=== PATIENT | female | born 1995 | race Caucasian/White ===

== ENCOUNTER 2023-11-03 12:00 | Emergency (ER) | payer OTHER, SELFPAY ==
[2023-11-03 12:04] VITALS: BP 134/78; PULSE 66; O2SAT 96
--- NOTE | 2023-11-03 12:04 | ED.GENADULT ---
HPI - General Adult General Chief complaint: Upper Respiratory Symptoms Stated complaint: N/V,WEAK,FLU LIKE PER EMS Time Seen by Provider: 11/03/23 12:53 Source: patient Mode of arrival: ambulatory Limitations: no limitations History of Present Illness ED Provider: Noah Delgado PA-C HPI narrative: Xiomara is a 28 year old female who is otherwise healthy who presents with nausea, vomiting x3, diarrhea and epigastric pain that began this morning around 3 am. She notes the epigastric pain started suddenly, has been constant without radiation, and rates it as a 7/10. She notes that she lives in a residential home and states several people around her have also been feeling unwell the past few days. She notes associated symptoms of generalized weakness as well as chills for the same duration as well. Of note, she notes that she had her gallbladder removed around two years ago without any known complications. She denies any recent travel or recent changes to her dietary habits. She denies any urinary symptoms such as increased frequency or burning. She denies any alcohol use, though endorses cigarette use. She denies chest pain or shortness of breath. MD complaint: N/V/D, abdominal pain Onset (ago): hour(s) (10) Location: abdomen (epigastrum) Radiation: non-radiation Severity scale (1-10): 7 Pain Consistency: constant Relieving factors: none Exacerbating factors: none Associated symptoms: fever/chills (chills), malaise, nausea/vomiting (nausea & vomiting x3) and weakness Treatments prior to arrival: none Related Data Previous Rx's ?Medication ?Instructions ?Recorded ondansetron 4 mg disintegrating 4 mg PO Q8H PRN nausea and 11/03/23 tablet vomiting #10 tabs Allergies Allergy/AdvReac Type Severity Reaction Status Date / Time prednisone Allergy Hives Verified 11/03/23 12:27 Review of Systems Review of Systems: Yes all other systems are reviewed and are negative Constitutional: Constitutional: Reports as per HPI, Reports chills, Reports lethargy, Reports malaise and Reports weight gain Eyes: Eyes: Reports no additional eye complaints ENT: Reports system reviewed and no additional complaints, except as documented Cardiovascular: Cardiovascular: Reports as per HPI Respiratory: Respiratory: Reports no additional respiratory complaints Gastrointestinal: Gastrointestinal: Reports abdominal pain (mild localized epigastric pain), Reports diarrhea, Reports nausea and Reports vomiting (vomiting x3) Genitourinary: Genitourinary: Reports no additional female genitourinary complaints Musculoskeletal: Musculoskeletal: Reports muscle weakness Integumentary/Breasts: Skin/Breast: Reports system reviewed and no additional complaints, except as docu Neurologic: Reports system reviewed and no additional complaints, except as documented Psychiatric: Psychiatric: Reports no additional psychiatric complaints Endocrine: Endocrine: Reports no additional endocrine complaints Hematologic/Lymphatic: Hematologic/Lymphatic: Reports no additional hematologic/lymphatic complaints Allergic/Immunologic: Allergic/Immunologic: Reports no additional allergic/immunologic complaints [facility] Social History Social History Advance Directives: No Do you have a plan to hurt others: No Plan Patient : No Physical Exam ED Vital Signs: Vital Signs - 24 hr 11/03/23 12:23 11/03/23 14:04 Temperature 98.4 F Pulse Rate 84 54 Respiratory Rate 16 14 Blood Pressure 116/65 95/46 L Pulse Oximetry 90 L 98 Oxygen Delivery Method Room Air Room Air BMI result Body Mass Index 27.9 Appearance: patient in tearful in position upon first glance, though cooperative with exam and able to move around. Otherwise awake and alert. Head: normocephalic, atraumatic. Eyes: Pupils equal, round and reactive to light. CVS: Normal heart rate and rhythm. Pulses normal. Respiratory: No respiratory distress. Breath sounds normal. Abdomen: tenderness to palpation of the epigastric area, non-distended, no guarding or rigidity. normal active bowel sounds Skin: Skin warm and dry. Normal skin color. No rashes. Extremities: No lower extremity edema. No joint swelling. Neuro/psych: Oriented X 3. No motor deficit. No sensory deficit. Normal speech and cognition. Course Course Course Narrative: This is an RME done by [facility]: Additional HPI, ROS, PE not included below will be deferred to primary provider. 28 year old female with concerns of fatigue, nausea, vomiting, diarrhea and LUQ abdominal pain (610) since 0300 this morning with a/c chills. Denies fevers. Plan- viral testing, labs Appearance: Alert.? Oriented X3.? No acute cardiopulmonary distress distress.? Head: Normocephalic, atraumatic, no step-offs or deformities Neck: Normal inspection.? Neck supple.? CVS: Pulses normal.? Respiratory: No respiratory distress.? Abdomen: Soft and nontender.? Skin: ? Normal skin color. Extremities: 5/5 strength to bilateral upper and lower extremities Neuro: Oriented X 3.? No motor deficit.? No sensory deficit. Reevaluation(s) Reevaluation #1: Patient's pain is improved after 2 doses of morphine, she did require 2 doses of Zofran as well. Her home methadone dose has been verified and ordered. She is feeling better. Will give a p.o. trial. Time: 15:13 Medications Administered Discontinued Medications Generic Name Dose Route Start Last Admin Trade Name Freq PRN Reason Stop Dose Admin Sodium Chloride 1,000 mls @ 999 mls/hr 11/03/23 13:15 11/03/23 14:24 Ns IVCONT 11/03/23 14:15 Infused .Q1H1M EVETTE Infusion Ketorolac Tromethamine 30 mg 11/03/23 13:14 11/03/23 13:27 Ketorolac Tromethamine 30 Mg/Ml Vial IVPUSH 11/03/23 13:15 30 mg ONCE ONE Administration Methadone HCl 120 mg 11/03/23 14:08 11/03/23 15:22 Methadone Hcl 20 Mg/2 Ml Oral.Conc PO 11/03/23 14:09 120 mg ONCE ONE Administration Morphine Sulfate 4 mg 11/03/23 14:23 11/03/23 14:48 Morphine Sulfate 4 Mg/Ml Cartridge IVPUSH 11/03/23 14:24 4 mg ONCE ONE Administration Protocol Ondansetron HCl 4 mg 11/03/23 13:14 11/03/23 13:27 Ondansetron Hcl 4 Mg/2 Ml Vial IVPUSH 11/03/23 13:15 4 mg ONCE ONE Administration Ondansetron HCl 4 mg 11/03/23 14:09 11/03/23 14:48 Ondansetron Hcl 4 Mg/2 Ml Vial IVPUSH 11/03/23 14:10 4 mg ONCE ONE Administration Medical Decision Making Medical Decision Making MDM Narrative: Xiomara is a 28 year old female who is otherwise healthy who presents with nausea, vomiting x3, diarrhea and epigastric pain that began this morning around 3 am. She notes the epigastric pain started suddenly, has been constant without radiation, and rates it as a 7/10. She notes that she lives in a residential home and states several people around her have also been feeling unwell the past few days. She notes associated symptoms of generalized weakness as well as chills for the same duration as well. Of note, she notes that she had her gallbladder removed around two years ago without any known complications. She denies any recent travel or recent changes to her dietary habits. She denies any urinary symptoms such as increased frequency or burning. She denies any alcohol use, though endorses cigarette use. She denies chest pain or shortness of breath. At this time, it is likely that this is a viral gastroenteritis as the patient has acute onset of symptoms including N/V/D and generalized weakness as well as associated sick contacts with similar symptoms. Other differentials include UT, , small bowel obstruction, pancreatitis, and peptic ulcer disease. Patient is not having any chest pain and does not have significant risk factors for a cardiac etiology, making UT less clinically suspicious. She is non-distended on exam and has been experiencing diarrhea, making the diagnosis of an obstruction less likely. The diagnosis of pancreatitis was considered as her pain is localized to the epigastrium, though she does no drink alcohol, does not have significant risk factors, and a lipase was within normal limits. The diagnosis of peptic ulcer disease is also less clinically suspicious, as the patient does not have significant risk factors such and pain is not made better or worse by eating. Patient's lab work was unremarkable. No leukocytosis. Normal lipase. LFTs were normal. She was treated with IV fluids, Toradol. She reported ongoing pain so was given 1 dose of morphine with improvement. Then she was able to tolerate her home methadone dose. Her urinalysis negative for and infection. She is feeling much better. She is tolerating p.o.. She is stable for discharge home with antiemetics and supportive care. Differential Diagnosis Differential Diagnoses: The differential diagnosis associated with the presentation includes Viral gastroenteritis, UT, , small bowel obstruction, pancreatitis, and peptic ulcer disease Admission/Observation Consideration of admission/observation: Escalation of care including admission/observation considered Lab Data MDM Lab Attestation statement: I reviewed the patient's lab results. No leukocytosis, no signs of dehydration, no major metabolic metabolic derangement 11/03/23 12:30 11/03/23 12:30 Labs: Lab Results 08/27/24 08/27/24 08/27/24 Range/Units 12:17 12:30 13:41 WBC 7.0 (4.8-10.8) X10*3/uL RBC 4.27 (4.20-5.50) X10*6/uL Hgb 12.6 (12.0-16.0) g/dl Hct 37.2 (37.0-47.0) % MCV 87.1 (80.0-98.0) fL MCH 29.5 (27.0-33.0) pg MCHC 33.9 (31.0-35.0) g/dl RDW 12.8 (11.0-16.0) % Plt Count 255 (160-400) X10*3/uL MPV 8.7 L (9.4-12.3) fL Immature Gran % (Auto) 0.1 (0.0-0.4) % Neut % (Auto) 45.1 (45-73) % Lymph % (Auto) 44.1 H (20-40) % Bailey % (Auto) 9.0 (2-11) % Eos % (Auto) 1.4 (0-4) % Baso % (Auto) 0.3 (0-2) % Lymph # (Auto) 3.1 (1.2-4.9) X10*3/uL Bailey # (Auto) 0.6 (0.1-1.2) X10*3/uL Eos # (Auto) 0.1 (0.0-0.4) X10*3/uL Baso # (Auto) 0.0 (0.0-0.2) X10*3/uL Abs Immat Gran (auto) 0.01 (0.00-0.03) X10*3/uL Absolute Neuts (auto) 3.2 (2.0-8.3) x10*3/uL Absolute Nucleated RBC 0.000 (0.0-0.012) X10*3/uL Nucleated RBC % (auto) 0.0 (0.0-0.2) /100WBC Sodium 140 (135-145) mmol/L Potassium 4.6 (3.3-5.1) mmol/L Chloride 107 (96-108) mmol/L Carbon Dioxide 27 (22-29) mmol/L Anion Gap 11 L (12-20) BUN 12 (9-16) mg/dL Creatinine 0.81 (0.5-1.4) mg/dL Estim Creat Clear Calc 112.1 Estimated GFR > 60 Random Glucose 90 (60-115) mg/dL Calcium 9.6 (8.4-10.2) mg/dL Total Bilirubin 0.3 (0.0-1.0) mg/dL AST 26 (5-31) U/L ALT 20 (0-31) U/L Alkaline Phosphatase 98 (39-117) U/L Total Protein 7.0 (6.5-8.0) g/dL Albumin 4.1 (3.5-5.0) g/dL Lipase 17 (8-78) U/L Urine Color Yellow Urine Appearance Clear Urine pH 7.5 (5.0-9.0) Ur Specific [place] 1.020 (1.005-1.025) Urine Protein Negative (Neg-Trace) mg/dL Urine Glucose (UA) Negative (Negative) mg/dL Urine Ketones Negative (Negative) mg/dL Urine Blood Negative (Negative) Urine Nitrite Negative (Negative) Ur Leukocyte Esterase Negative (Negative) Urine Test NEGATIVE (NEGATIVE) Urine Opiates Screen Not Detected (Not Detect) Ur Buprenorphine Scrn Not Detected (Not Detect) ng/mL Ur Oxycodone Screen Not Detected (Not Detect) ng/mL Urine Methadone Screen Positive H (Not Detect) ng/mL Urine Fentanyl Screen Not Detected (Not Detect) Ur Barbiturates Screen Not Detected (Not Detect) Ur Phencyclidine Scrn Not Detected (Not Detect) Ur Amphetamines Screen Not Detected (Not Detect) U Benzodiazepines Scrn Not Detected (Not Detect) Urine Cocaine Screen Not Detected (Not Detect) U Marijuana (THC) Screen Not Detected (Not Detect) Influenza Type A (PCR) NEGATIVE (Negative) Influenza Type B (PCR) NEGATIVE (Negative) RSV RNA Qual (PCR) NEGATIVE (Negative) SARS-CoV-2 RNA (RT-PCR) NEGATIVE (Negative) Tests considered The following testing was considered but not selected: CT scan of the abdomen was considered however her abdomen was soft without any guarding, only with mild epigastric tenderness Prescription Management I considered prescription management with: Pain Medication, Antiviral and Antibiotic Chronic Conditions Patient?s care impacted by: Other (Opioid use disorder on methadone) Critical Care Time Critical Care Time Critical Care Time: Yes Total Critical Care Time: 35 Attestation: I have personally provided critical care time exclusive of time spent on separately billable procedures. Time includes review of lab data,, bedside re-evaluation after administration of multiple doses IV narcotics, and monitoring for potential decompensation. Intervention performed as documented. Discharge Plan Discharge Clinical Impression: Gastroenteritis Patient Disposition: Home, Self-Care Instructions: Gastroenteritis (DC) Additional Instructions: You lab workup today was unremarkable. Your urine test was negative for infection and . You most likely have a viral GI bug also known as gastroenteritis. Treatment is supportive care, symptoms usually resolve on their own in 48-72 hours. Recommend rest and plenty of oral hydration. Stick to a bland diet like soup and toast while you are not feeling well. Take the prescribed medication as needed for nausea. Recommend over the counter Pepto Bismol or Imodium for upset stomach and diarrhea. Follow up with your doctor as needed. If you develop new or worsening symptoms call 911 or come back to the ER for further evaluation. Prescriptions: New ondansetron 4 mg tablet,disintegrating 4 mg PO Q8H PRN (Reason: nausea and vomiting) Qty: 10 0RF Print Language: Slovenian
[2023-11-03 12:23] VITALS: BP 116/65; PULSE 84; RESP 16; TEMP 36.9; O2SAT 90; BMI 27.9
[2023-11-03 12:34] LABS: MANUAL DIFF FLAG NO
[2023-11-03 12:35] LABS: Basophils Percent Auto 0.3 % (0-2); Eosinophils Absolute Auto 0.1 X10*3/uL (0.0-0.4); Eosinophils Percent Auto 1.4 % (0-4); Hematocrit 37.2 % (37.0-47.0); Hemoglobin 12.6 g/dl (12.0-16.0); Imm Gran Abs Auto 0.01 X10*3/uL (0.00-0.03); Imm Gran Pct Auto 0.1 % (0.0-0.4); Lymphocytes Absolute Auto 3.1 X10*3/uL (1.2-4.9); Lymphocytes Percent Auto 44.1 % (20-40); Mean Corpuscular HGB Conc 33.9 g/dl (31.0-35.0); Mean Corpuscular Hemoglobin 29.5 pg (27.0-33.0); Mean Corpuscular Volume 87.1 fL (80.0-98.0); Mean Platelet Volume 8.7 fL (9.4-12.3); Monocytes Absolute Auto 0.6 X10*3/uL (0.1-1.2); Neutrophils Absolute Auto 3.2 x10*3/uL (2.0-8.3); Neutrophils Percent Auto 45.1 % (45-73); Platelet Count 255 X10*3/uL (160-400); Red Blood Count 4.27 X10*6/uL (4.20-5.50); Red Cell Distribution Width 12.8 % (11.0-16.0)
[2023-11-03 12:48] LABS: Alanine Aminotransferase 20 U/L (0-31); Albumin Level 4.1 g/dL (3.5-5.0); Alkaline Phosphatase 98 U/L (39-117); Anion Gap 11 (12-20); Aspartate Amino Transferase 26 U/L (5-31); Bilirubin Total 0.3 mg/dL (0.0-1.0); Blood Urea Nitrogen 12 mg/dL (9-16); Calcium 9.6 mg/dL (8.4-10.2); Carbon Dioxide 27 mmol/L (22-29); Chloride 107 mmol/L (96-108); Creatinine Clr Calc Pharmacy 112.1; Estimated Glomerular Filt Rate > 60; Glucose Random 90 mg/dL (60-115); Lipase 17 U/L (8-78); Potassium 4.6 mmol/L (3.3-5.1); Sodium 140 mmol/L (135-145)
[2023-11-03 13:17] LABS: Influenza A PCR NEGATIVE (Negative); Influenza B PCR NEGATIVE (Negative); Resp Syncy Virus RNA Qual PCR NEGATIVE (Negative); SARS COV2 PCR INHOUSE NEGATIVE (Negative)
[2023-11-03] MEDS: 0.9 % Sodium Chloride 1,000 ML 999 ML IVCONT (13:25)
[2023-11-03] MEDS: ondansetron HCL 4 MG/2 ML VIAL IVPUSH ×2 (13:27→14:48)
[2023-11-03] MEDS: Ketorolac Tromethamine 30 MG/ML VIAL IVPUSH (13:27)
--- NOTE | 2023-11-03 13:32 | PC.NURSE ---
[facility] called @[phone] for Last dose verification, transferred over and advised to call number for after dosing hours, voicemail with callback number and name left @[phone].
[2023-11-03 13:53] LABS: Appearance Urine Clear; Color Urine Yellow; Glucose Urine UA Negative (Negative); Leukocyte Esterase Urine Negative (Negative); Nitrite Urine Negative (Negative); PH 7.5 (5.0-9.0); Urine Blood Negative (Negative); Urine Ketones Negative (Negative); Urine Protein Negative (Neg-Trace)
[2023-11-03 13:54] LABS: UPreg QC Valid YES; Urine Pregnancy NEGATIVE (NEGATIVE)
--- NOTE | 2023-11-03 14:01 | PC.NURSE ---
[facility] called clinic @[phone] again spoke to Rach Clements RN who provided last dose verification of 120 mg on 10/27/2023 and got 6 take homes to last until 11/02/2023. Last dose form faxed to pharmacy received time at [phone] [facility] office #[phone].
[2023-11-03 14:04] VITALS: BP 95/46; PULSE 54; RESP 14; O2SAT 98
--- NOTE | 2023-11-03 14:05 | HE.PHANOTE ---
methadone dose verified 120 mg per [facility]
[2023-11-03] MEDS: Morphine Sulfate 4 MG/ML CARTRIDGE IVPUSH (14:48)
[2023-11-03] MEDS: methADONE HCl 20 MG/2 ML ORAL.CONC 120 MG PO (15:22)
[2023-11-03 16:17] LABS: Amphetamine Screen Urine Not Detected (Not Detect); Barbiturates, Urine Not Detected (Not Detect); Benzodiazepines Screen Urine Not Detected (Not Detect); Buprenorphine Scr Not Detected (Not Detect); Cannabinoid Screen Urine Not Detected (Not Detect); Cocaine Screen Urine Not Detected (Not Detect); Fentanyl, urine Not Detected (Not Detect); Methadone Screen, Urine Positive (Not Detect); Opiate Screen Urine Not Detected (Not Detect); Oxycodone Screen Urine Not Detected (Not Detect); Phencyclidine Screen Urine Not Detected (Not Detect)
--- NOTE | 2023-11-03 16:32 | PC.NURSE ---
[facility] Mireles called in regards to tox screen and pt update. Update on PT provided, PT received last dose letter and toxicology screen report.
[2023-11-03 16:39] VITALS: BP 95/46; PULSE 54; RESP 14; TEMP 37.2; O2SAT 98
== END 2023-11-03 16:42 | disposition home or self-care (01) ==
PROVIDERS: Physician Assistant; Emergency Provider Emergency Medicine Emergency Medical Services
DX: K52.9 Noninfective gastroenteritis and colitis, unspecified (principal); R11.2 Nausea with vomiting, unspecified; R53.1 Weakness; R10.13 Epigastric pain; R50.9 Fever, unspecified; Z79.899 Other long term (current) drug therapy; Z03.818 Encounter for observation for suspected exposure to other biological agents ruled out
CPT/HCPCS: 0241U; 36415; 80053; 80307; 81003; 81025; 83690; 85025; 96361; 96374; 96375; 96376; 99284; J1885; J2270; J2405